=== PATIENT | female | born 1990 | race African-American/Black ===

== ENCOUNTER 2020-05-23 05:24 | Day surgery (SDC) | payer MEDICAID ==
[2020-05-20 14:33] LABS: BASOPHILS % (AUTO) 0.2 % (0-1); EOSINOPHILS # (AUTO) 0.1 X10'3 (0-0.9); EOSINOPHILS % (AUTO) 1.1 % (0-6); LYMPHOCYTES # (AUTO) 1.4 X10'3 (1.1-4.8); LYMPHOCYTES % (AUTO) 15.9 % (21-51); MEAN CORPUSCULAR HEMOGLOBIN 29.7 PG (27.0-31.0); MEAN CORPUSCULAR HGB CONC 33.2 g/dL (33.0-36.5); MEAN CORPUSCULAR VOLUME 89.3 FL (78-98); MEAN PLATELET VOLUME 9.1 FL (7.4-10.4); MONOCYTES # (AUTO) 0.5 X10'3 (0-0.9); MONOCYTES % (AUTO) 5.5 % (2-12); NEUTROPHILS # (AUTO) 6.9 X10'3 (1.8-7.7); NEUTROPHILS % (AUTO) 77.3 % (42-75); PRE OP HEMATOCRIT 38.1 % (35.0-45.0); PRE OP HEMOGLOBIN 12.7 g/dL (12.0-16.0); PRE OP PLATELET COUNT 261 X10'3 (140-440); RED BLOOD COUNT 4.27 X10'6 (4.20-5.60); RED CELL DISTRIBUTION WIDTH 12.4 % (11.5-14.5)
[2020-05-20 14:48] LABS: ALBUMIN 3.8 G/DL (3.4-5.0); ALKALINE PHOSPHATASE 44 IU/L (46-116); BLOOD UREA NITROGEN 10 MG/DL (7-18); BUN/CREATININE RATIO 15.9 (6.6-38.0); CALCIUM 9.2 MG/DL (8.5-10.1); CHLORIDE 105 MMOL/L (99-107); CREATININE 0.63 MG/DL (0.40-0.90); PRE OP ALT 17 U/L (30-65); PRE OP ANION GAP 8 (8-16); PRE OP AST 10 U/L (10-37); PRE OP BILIRUB, TOTAL 0.3 MG/DL (0.0-1.0); PRE OP GLUCOSE 85 MG/DL (70-104); PRE OP POTASSIUM 3.9 MMOL/L (3.4-5.1); PRE OP SODIUM 142 MMOL/L (135-145); TOTAL CARBON DIOXIDE 28.9 MMOL/L (24-32); TOTAL PROTEIN 7.8 G/DL (6.4-8.2); eGFR > 90 ML/MIN
[2020-05-20 14:56] LABS: HCG SERUM QL NEGATIVE
[2020-05-23] VITALS (9 sets, daily range): BP systolic 113–146; BP diastolic 68–88
[~2020-05-23] VITALS: Ht 177.8 cm; Wt 106.5 kg
[~2020-05-23 05:24] MED LIST: NO HOME MEDS; ringers solution, lacted 1,000 ML IV SCH
[2020-05-23] MEDS ORDERED: famotidine 20mg tablet PO ONE (05:30)
[2020-05-23] MEDS ORDERED: INDOCYANINE GREEN 25 MG/10 ML VIAL IV ONE (05:30)
[2020-05-23] MEDS ORDERED: ceFAZolin 2gm in dextrose, iso 50 ML IV ONE (05:30)
--- NOTE | 2020-05-23 06:06 | NUR ---
IC GREEN WILL NOT SCAN
[2020-05-23] MEDS ORDERED: LIDOcaine 1% 30ml preserv. free vial ONE (06:39)
[2020-05-23] MEDS ORDERED: BUPIVAcaine/PF 2.5 mg/ml (0.25%) 30ml vial ONE (06:39)
[2020-05-23] MEDS ORDERED: fentaNYL/PF 50MCG/1 ML 2ML syringe ONE ×2 (07:15→07:51)
[2020-05-23] MEDS ORDERED: midazolam 1 mg/ML 2ml injection ONE (07:16)
[2020-05-23] MEDS ORDERED: meperidine/PF 25mg/ml syringe IV PRN ×6 (07:25→07:30)
[2020-05-23] MEDS ORDERED: ondansetron/PF 4mg/2ml inj IV PRN ×2 (07:25→07:30)
[2020-05-23] MEDS ORDERED: morphine 4 MG/ML inj SYRINge IV PRN ×2 (07:25→07:30)
[2020-05-23] MEDS ORDERED: morphine 2 MG/ML inj. syringe IV PRN ×2 (07:25→07:30)
[2020-05-23] MEDS ORDERED: ringers solution, lacted 1,000 ML IV SCH ×2 (07:25→07:30)
[2020-05-23] MEDS ORDERED: proCHLORperazine 10 MG/2 ml inj IV PRN ×2 (07:25→07:30)
[2020-05-23] MEDS ORDERED: metoprolol tartrate 1mg/ml inj IV ONE (07:30)
[2020-05-23] MEDS ORDERED: sevoflurane 250ml liquid IH ONE (07:30)
[2020-05-23] MEDS ORDERED: dexamethasone sod phosphate 4mg/ml inj. ONE (07:50)
[2020-05-23] MEDS ORDERED: propofol inj 20 ML IV ONE ×2 (07:50→08:25)
[2020-05-23] MEDS ORDERED: rocuronium 10mg/ml inj IV ONE (07:50)
[2020-05-23] MEDS ORDERED: neostigmine methylsulfate 1 MG/ML 10ml vial ONE (07:50)
[2020-05-23] MEDS ORDERED: glycopyrrolate 0.2mg/ml inj ONE (07:50)
[2020-05-23] MEDS ORDERED: ondansetron/PF 4mg/2ml inj ONE (07:50)
[2020-05-23] MEDS ORDERED: LIDOcaine 2% (20mg/ml) 5ml vial ONE (07:50)
--- NOTE | 2020-05-23 08:31 | NUR ---
Received from OR via [facility], accompanied by Anesthesiologist and report given by Anesthesiologist. PATIENT IS AWAKE, V.S. STABLE, IV ON LEFT AC 20G LR RUNNING, FOUR BANDAGES ACROSS ANTERIOR ABD, CDI, NO EDEMA OR HEMATOMA NOTED AT THE ABD, 10L O2 WITH MASK, SHIVERING, CANDELARIO RADHAGGER ADMINISTERED, WILL MONITOR. Addendum: 05/23/20 at 0900 by Isamar Farley RN Amended: Links added.
[2020-05-23] MEDS ORDERED: traMADol 50MG tablet PO PRN (08:35)
[2020-05-23] MEDS ORDERED: sugammadex 200mg/2ml injection IV ONE (08:38)
--- NOTE | 2020-05-23 09:51 | NUR ---
PATIENT'S V.S. STABLE, PIV D/C'D FROM LEFT AC 20G CATHETER INTACT, FOUR BANDAGES ACROSS ANTERIOR LOWER ABD CDI, NO HEMATOMA OR ERYTHEMA NOTED ON ABD, REVIEWED D/C INSTRUCTIONS WITH PATIENT AND PATIENT VERBALIZED UNDERSTANDING. PATIENT VERBALIZES RELIEF OF PAIN AT DISCHARGE, STILL A LITTLE DISCOMFORT ON ABD, WHEN PATIENT SAT UP, PATIENT C/O NAUSEA BUT NO VOMITING, PATIENT TRANSFERRED WITH WHEEL CHAIR TO BE D/C'D HOME WITH ALL BELONGINGS WITH NO INCIDENTS AND FAMILY GAVE TRANSPORT HOME. Addendum: 05/23/20 at 1016 by Isamar Farley RN Amended: Links added.
--- NOTE | 2020-05-23 09:51 | NUR ---
PATIENT'S TEMPORAL TEMPERATURE AT DISCHARGE IS 36.8C, CANDELARIO [place] RIGHT BEFORE DISCHARGE. Addendum: 05/23/20 at 1024 by Isamar Farley RN Amended: Links added.
--- NOTE | 2020-05-23 09:51 | NUR ---
PATIENT [place] STABLE, PATIENT STATES RELIEF OF PAIN STILL WITH SOME DISCOMFORT ON ANTERIOR ABD, PIV D/C'D FROM LEFT AC 20G CATHETER INTACT, FOUR BANDAGES CDIANTERIOR ABD, I HAVE REVIEWED D/C INSTRUCTIONS WITH PATIENT AND PATIENT VERBALIZED UNDERSTANDING. PATIENT D/C HOME WITH ALL BELONGINGS AND FAMILY GAVE TRANSPORT HOME.PATIENT OFFERED MASK BUT REFUSED TO WEAR IT AT UPON D/C. Addendum: 05/23/20 at 1025 by Isamar Farley RN PATIENT WORE MASK AT DISCHARGE TO BE TRANSFERRED TO PRIVATE VEHICLE. Addendum: 05/23/20 at 1026 by Isamar Farley RN Amended: Links added.
== END 2020-05-23 09:51 | disposition home or self-care (01) ==
LOC: PAS 05:24
PROVIDERS: ATTEND Surgery
DX: K80.20 Calculus of gallbladder without cholecystitis without obstruction (principal); R10.11 Right upper quadrant pain; I10 Essential (primary) hypertension; Z72.0 Tobacco use
CPT/HCPCS: 36415; 47563; 80053; 82948; 84703; 85025; C9399; J1100; J2001; J2175; J2250; J2405; J2704; J2710; J3010; J3490; J7120; U0003; A4215; A4618